=== PATIENT | male | born 1940 | race Caucasian/White ===

== ENCOUNTER → 2017-07-12 | Outpatient (CLI) | payer MEDICARE | END | disposition home or self-care (01) | LOC: CVU 08:50 | PROVIDERS: ATTEND Internal Medicine Cardiovascular Disease | DX: I65.23 Occlusion and stenosis of bilateral carotid arteries (principal); I10 Essential (primary) hypertension; Z87.891 Personal history of nicotine dependence | CPT/HCPCS: 93880 ==

== ENCOUNTER → 2017-12-01 | Outpatient (CLI) | payer MEDICARE | END | disposition home or self-care (01) | LOC: CVU 09:48 | PROVIDERS: ATTEND Internal Medicine Cardiovascular Disease | DX: I70.213 Atherosclerosis of native arteries of extremities with intermittent claudication, bilateral legs (principal); I87.2 Venous insufficiency (chronic) (peripheral); R60.0 Localized edema | CPT/HCPCS: 93922 ==

== ENCOUNTER → 2017-12-19 | Outpatient (CLI) | payer MEDICARE | END | disposition home or self-care (01) | LOC: CVU 08:53 | PROVIDERS: ATTEND Internal Medicine Cardiovascular Disease | DX: I51.7 Cardiomegaly (principal); I35.1 Nonrheumatic aortic (valve) insufficiency | CPT/HCPCS: 93306 ==

== ENCOUNTER → 2019-11-21 | Outpatient (CLI) | payer MEDICARE ==
[2019-11-21 11:35] LABS: ALANINE AMINOTRANSFERASE 32 U/L (12-78); ALBUMIN 3.9 g/dL (3.4-5.0); ANION GAP 3 mmol/L (5-15); CHLORIDE 108 mmol/L (98-107); CHOLESTEROL, TOTAL 193 mg/dL (140-239); CREATININE 0.76 mg/dL (0.7-1.3); TRIGLYCERIDES 116 mg/dL (50-200); VLDL CHOLESTEROL 23 mg/dL (0-25)
[2019-11-21 11:37] LABS: ALKALINE PHOSPHATASE 50 U/L (45-117); BILIRUBIN,TOTAL 0.7 mg/dL (0.2-1.0); CHOL/HDL RATIO 4.6; HDL CHOL % 22 % (26-37); HDL CHOLESTEROL (DIRECT) 42 mg/dL (40-60); LDL CHOLESTEROL,CALCULATED 128 mg/dL (54-169); TOTAL PROTEIN 7.1 g/dL (6.4-8.2)
== END | disposition home or self-care (01) ==
LOC: CVU 09:50
PROVIDERS: ATTEND Internal Medicine Cardiovascular Disease
DX: I08.0 Rheumatic disorders of both mitral and aortic valves (principal); I11.9 Hypertensive heart disease without heart failure; R00.1 Bradycardia, unspecified; R60.9 Edema, unspecified
CPT/HCPCS: 36415; 80053; 80061; 93306

== ENCOUNTER 2020-07-21 10:53 | Outpatient (CLI) | payer MEDICARE | END 2020-07-21 23:59 | disposition home or self-care (01) | LOC: CVU 10:53 | PROVIDERS: ATTEND Internal Medicine Cardiovascular Disease | DX: I08.3 Combined rheumatic disorders of mitral, aortic and tricuspid valves (principal); I11.9 Hypertensive heart disease without heart failure | CPT/HCPCS: C8929; Q9957 ==

== ENCOUNTER → 2020-08-15 | Outpatient (CLI) | payer MEDICARE ==
[~2020-08-15] MED LIST: VISIPAQUE 320 MG/ML, 150ML BOTTLE ONE
[2020-08-15 11:26] LABS: CREATININE 0.71 mg/dL (0.7-1.3)
== END | disposition home or self-care (01) ==
LOC: RAD 10:33
PROVIDERS: ATTEND Internal Medicine Cardiovascular Disease
DX: I65.23 Occlusion and stenosis of bilateral carotid arteries (principal); E78.2 Mixed hyperlipidemia; I35.8 Other nonrheumatic aortic valve disorders; I70.203 Unspecified atherosclerosis of native arteries of extremities, bilateral legs; K76.0 Fatty (change of) liver, not elsewhere classified; N28.1 Cyst of kidney, acquired; I70.0 Atherosclerosis of aorta; I10 Essential (primary) hypertension
CPT/HCPCS: 36415; 71275; 74174; 82565; 93880; Q9967

== ENCOUNTER 2020-08-25 10:26 | Day surgery (SDC) | payer MEDICARE ==
[~2020-08-25] VITALS: Ht 175.3 cm; Wt 137.7 kg
[2020-08-25] MEDS ORDERED: ASPI81TA45 PO (11:15)
[2020-08-25] MEDS ORDERED: LOSA1TAB25 PO (11:15)
[2020-08-25] MEDS ORDERED: GABA-827 PO (11:15)
[2020-08-25] MEDS ORDERED: TAMS-11 PO (11:15)
[2020-08-25] MEDS ORDERED: LEVO112T4 PO (11:15)
[2020-08-25] MEDS ORDERED: SPIR25TA5 PO (11:15)
[2020-08-25] MEDS ORDERED: MV-M1TAB34 PO (11:19)
[2020-08-25] MEDS ORDERED: RED600TA PO (11:19)
[2020-08-25] MEDS ORDERED: LYSI500T25 PO (11:19)
[2020-08-25] MEDS ORDERED: UBID100C41 PO (11:19)
[2020-08-25] MEDS ORDERED: ARGI500C2 PO (11:19)
[2020-08-25] MEDS ORDERED: Vitamin D PO (11:19)
[2020-08-25] MEDS ORDERED: AREDS 2 PO (11:19)
[2020-08-25 11:49] VITALS: BP 137/62
[2020-08-25 11:55] LABS: BASOPHILS % (AUTO) 1 % (0-1); EOSINOPHILS % (AUTO) 5 % (1-7); LYMPHOCYTES % (AUTO) 24 % (22-44); MEAN CORPUSCULAR HGB CONC 34.3 g/dL (33.2-36.2); MEAN PLATELET VOLUME 7.4 fL (7.4-10.4); MONOCYTES % (AUTO) 10 % (2-9); NEUTROPHILS % (AUTO) 61 % (42-75); PLATELET COUNT 287 x10^3/uL (130-400); RED BLOOD COUNT 4.66 x10^6/uL (4.38-5.82); RED CELL DISTRIBUTION WIDTH 13.5 % (9.4-14.8)
[2020-08-25 12:05] LABS: ANION GAP 5 mmol/L (5-15); CALCIUM 8.7 mg/dL (8.5-10.1); CHLORIDE 109 mmol/L (98-107); CREATININE 0.71 mg/dL (0.7-1.3)
[2020-08-25] MEDS ORDERED: FENTANYL PF 100 MCG/2ML ONE (13:36)
[2020-08-25] MEDS ORDERED: HEPARIN 1,000 UNITS/ML, 10ML ONE (13:36)
[2020-08-25] MEDS ORDERED: LIDOCAINE-MPF 1%, 5ML ONE (13:36)
[2020-08-25] MEDS ORDERED: VERAPAMIL 2.5 MG/ML, 2ML ONE (13:36)
[2020-08-25] MEDS ORDERED: MIDAZOLAM 1 MG/ML, 2ML ONE (13:36)
[2020-08-25] MEDS ORDERED: LIDOCAINE 1%, 20ML ONE (13:59)
== END 2020-08-25 15:54 | disposition home or self-care (01) ==
LOC: CACL 10:26
PROVIDERS: ATTEND Internal Medicine Cardiovascular Disease
DX: Z01.810 Encounter for preprocedural cardiovascular examination (principal); I35.0 Nonrheumatic aortic (valve) stenosis; I25.10 Atherosclerotic heart disease of native coronary artery without angina pectoris; I10 Essential (primary) hypertension; I65.29 Occlusion and stenosis of unspecified carotid artery; E78.2 Mixed hyperlipidemia; Z79.82 Long term (current) use of aspirin; Z79.890 Hormone replacement therapy; Z79.899 Other long term (current) drug therapy; Z96.652 Presence of left artificial knee joint
CPT/HCPCS: 36415; 80048; 85025; 93454; 99156; C1769; C1894; J1644; J2250; J3010; Q9967

== ENCOUNTER 2020-09-09 08:09 | Inpatient (IN) | payer MEDICARE ==
[~2020-09-09] VITALS: Ht 175.3 cm; Wt 139.8 kg
[~2020-09-09 08:09] MED LIST changes: +AREDS 2 PO; +ARGI500C2 PO; +ASPI81TA45 PO; +GABA-827 PO; +LEVO112T4 PO; +LOSA1TAB25 PO; +LYSI500T25 PO; +MV-M1TAB34 PO; +RED600TA PO; +SPIR25TA5 PO; +TAMS-11 PO; +UBID100C41 PO; -VISIPAQUE 320 MG/ML, 150ML BOTTLE ONE; +Vitamin D PO
[2020-09-09] MEDS ORDERED: PLEASE ENTER HEIGHT AND WEIGHT MC SCH (09:00)
[2020-09-09] MEDS ORDERED: ONDANSETRON 2MG/ML, 2ML IV PRN (09:00)
[2020-09-09] MEDS ORDERED: SODIUM CHLORIDE 0.9% 1,000 ML IV ONE (09:00)
[2020-09-09 09:05] VITALS: BP 145/66
[2020-09-09] MEDS ORDERED: LOSA1TAB22 PO (09:12)
[2020-09-09] MEDS ORDERED: LEVO125T5 PO (09:15)
[2020-09-09] MEDS ORDERED: ARGI1000 PO (09:17)
[2020-09-09 09:31] LABS: BASOPHILS % (AUTO) 1 % (0-1); EOSINOPHILS % (AUTO) 4 % (1-7); LYMPHOCYTES % (AUTO) 20 % (22-44); MEAN CORPUSCULAR HGB CONC 34.4 g/dL (33.2-36.2); MEAN PLATELET VOLUME 7.5 fL (7.4-10.4); MONOCYTES % (AUTO) 10 % (2-9); NEUTROPHILS % (AUTO) 65 % (42-75); PLATELET COUNT 286 x10^3/uL (130-400); RED BLOOD COUNT 4.72 x10^6/uL (4.38-5.82); RED CELL DISTRIBUTION WIDTH 13.5 % (9.4-14.8)
[2020-09-09 09:39] LABS: INTERNATIONAL NORMALIZED RATIO 0.98 (0.93-1.1); PROTHROMBIN TIME 10.5 Seconds (9.6-11.5)
[2020-09-09 09:45] LABS: ALANINE AMINOTRANSFERASE 31 U/L (12-78); ALBUMIN 3.5 g/dL (3.4-5.0); ANION GAP 5 mmol/L (5-15); CALCIUM 8.6 mg/dL (8.5-10.1); CHLORIDE 108 mmol/L (98-107); CREATININE 0.68 mg/dL (0.7-1.3)
[2020-09-09 09:47] LABS: ALKALINE PHOSPHATASE 46 U/L (45-117); BILIRUBIN,TOTAL 0.8 mg/dL (0.2-1.0); TOTAL PROTEIN 6.8 g/dL (6.4-8.2)
[2020-09-09] MEDS ORDERED: PROTAMINE SULFATE 10 MG/ML, 5ML ONE (09:59)
[2020-09-09] MEDS ORDERED: FENTANYL PF 250 MCG/5ML ONE (10:04)
[2020-09-09] MEDS ORDERED: PROPOFOL 10 MG/ML, 20ML ONE (10:05)
[2020-09-09] MEDS ORDERED: CEFAZOLIN 1,000 MG ONE (10:05)
[2020-09-09] MEDS ORDERED: DEXAMETHASONE 4 MG/ML, 1ML ONE (10:05)
[2020-09-09] MEDS ORDERED: ROCURONIUM 10MG/ML,5ML ONE (10:05)
[2020-09-09] MEDS ORDERED: SUCCINYLCHOLINE 20 MG/ML, 10ML ONE (10:09)
[2020-09-09] MEDS ORDERED: GLYCOPYRROLATE 0.2MG/1ML, 5ML ONE (10:09)
[2020-09-09] MEDS ORDERED: PHENYLEPHRINE 10 MG/ML ONE (10:09)
[2020-09-09] MEDS ORDERED: HEPARIN 1,000 UNITS/ML, 10ML ONE ×3 (10:33)
[2020-09-09] MEDS ORDERED: ONDANSETRON 2MG/ML, 2ML ONE (11:02)
[2020-09-09] MEDS ORDERED: LABETALOL 20 MG/4 ML IVPush PRN (11:30)
[2020-09-09] MEDS ORDERED: ACETAMINOPHEN 325 MG TABLET PO PRN (11:30)
[2020-09-09] MEDS ORDERED: HYDROcodone/APAP 5/325 TABLET PO PRN (11:30)
[2020-09-09] MEDS ORDERED: hydrALAzine 20 MG/ML, 1ML IVPush PRN (11:30)
[2020-09-09] MEDS ORDERED: hydrALAzine 20 MG/ML, 1ML ONE (11:51)
[2020-09-09] MEDS: ASPIRIN 81 MG TABLET EC PO SCH (12:00)
[2020-09-09] MEDS ORDERED: ASPIRIN 81 MG TABLET CHEW ONE (12:02)
[2020-09-09 13:10] VITALS: BP 109/60
[2020-09-09 15:15] VITALS: BP 119/63
[2020-09-09] MEDS: GABAPENTIN 400 MG CAPSULE PO SCH ×2 (17:04→20:57)
[2020-09-09 19:37] VITALS: BP 122/67
[2020-09-09] MEDS ORDERED: TAMSULOSIN 0.4 MG CAP.ER.24H PO SCH (21:00)
[2020-09-10 00:57] VITALS: BP 134/79
[2020-09-10 05:02] LABS: BASOPHILS % (AUTO) 0 % (0-1); EOSINOPHILS % (AUTO) 0 % (1-7); LYMPHOCYTES % (AUTO) 7 % (22-44); MEAN CORPUSCULAR HEMOGLOBIN 30.8 pg (27.5-34.5); MEAN CORPUSCULAR HGB CONC 33.7 g/dL (33.2-36.2); MEAN PLATELET VOLUME 7.3 fL (7.4-10.4); MONOCYTES % (AUTO) 7 % (2-9); NEUTROPHILS % (AUTO) 86 % (42-75); PLATELET COUNT 261 x10^3/uL (130-400); RED BLOOD COUNT 4.43 x10^6/uL (4.38-5.82); RED CELL DISTRIBUTION WIDTH 13.3 % (9.4-14.8)
[2020-09-10 05:15] LABS: ANION GAP 8 mmol/L (5-15); CALCIUM 8.2 mg/dL (8.5-10.1); CHLORIDE 104 mmol/L (98-107)
[2020-09-10 05:16] LABS: CREATININE 0.59 mg/dL (0.7-1.3)
[2020-09-10] MEDS ORDERED: LEVOTHYROXINE 125 MCG TABLET PO SCH (06:00)
[2020-09-10 07:22] VITALS: BP 149/72
[2020-09-10] MEDS ORDERED: HYDROCHLOROTHIAZIDE 25 MG TABLET PO SCH (09:00)
[2020-09-10] MEDS ORDERED: LOSARTAN 100 MG TAB PO SCH (09:00)
[2020-09-10] MEDS ORDERED: SPIRONOLACTONE 25 MG TABLET PO SCH (09:00)
[2020-09-10] MEDS: ASPIRIN 81 MG TABLET EC PO SCH (09:32)
[2020-09-10] MEDS: GABAPENTIN 400 MG CAPSULE PO SCH (09:32)
== END 2020-09-10 13:45 | disposition home or self-care (01) | DRG 266 ==
LOC: ORIP 08:09 → 5SO 12:28 → DCLOUNGE 09-10 13:45
PROVIDERS: ADMIT Internal Medicine Cardiovascular Disease; ATTEND Internal Medicine Cardiovascular Disease
PROC: B3101ZZ Fluoroscopy of Thoracic Aorta using Low Osmolar Contrast (ICD-10-PCS; 2020-09-09)
PROC: B24BZZ4 Ultrasonography of Heart with Aorta, Transesophageal (ICD-10-PCS; 2020-09-09)
PROC: 02RF38Z Replacement of Aortic Valve with Zooplastic Tissue, Percutaneous Approach (ICD-10-PCS; principal; 2020-09-09 10:30)
DX: I35.0 Nonrheumatic aortic (valve) stenosis (principal); Z00.6 Encounter for examination for normal comparison and control in clinical research program; I50.33 Acute on chronic diastolic (congestive) heart failure; Z68.42 Body mass index [BMI] 45.0-49.9, adult; D72.829 Elevated white blood cell count, unspecified; E66.9 Obesity, unspecified; E78.5 Hyperlipidemia, unspecified; G47.33 Obstructive sleep apnea (adult) (pediatric); I11.0 Hypertensive heart disease with heart failure; I27.20 Pulmonary hypertension, unspecified; I44.1 Atrioventricular block, second degree; N40.0 Benign prostatic hyperplasia without lower urinary tract symptoms; Z96.652 Presence of left artificial knee joint; Z20.822 Contact with and (suspected) exposure to COVID-19
CPT/HCPCS: 33361; 36415; 76937; 80048; 80053; 85025; 85610; 86850; 86900; 86923; 87635; 93005; 93306; 93312; 93321; 93325; 93355; C1760; C1769; C1894; G0378; J0690; J1100; J1644; J2405; J2704; J2720; J3010; J0330; J0360; J2370; J7030; Q9967

== ENCOUNTER → 2020-10-20 | Outpatient (CLI) | payer MEDICARE ==
[~2020-10-20] MED LIST changes: +ARGI1000 PO; +LEVO125T5 PO; +LOSA1TAB22 PO
== END | disposition home or self-care (01) ==
LOC: CVU 09:53
PROVIDERS: ATTEND Internal Medicine Cardiovascular Disease
DX: Z01.810 Encounter for preprocedural cardiovascular examination (principal); I08.1 Rheumatic disorders of both mitral and tricuspid valves; I65.29 Occlusion and stenosis of unspecified carotid artery; I11.9 Hypertensive heart disease without heart failure; Z95.2 Presence of prosthetic heart valve
CPT/HCPCS: 93306

== ENCOUNTER 2020-11-07 08:47 | Observation (INO) | payer MEDICARE ==
[~2020-11-07] VITALS: Ht 175.3 cm; Wt 136.0 kg
[2020-11-07] MEDS: SODIUM CHLORIDE 0.9% 1,000 ML IV SCH ×2 (09:30→16:29)
[2020-11-07] MEDS ORDERED: ROSU5TAB PO (09:44)
[2020-11-07] MEDS ORDERED: UBID30CA9 PO (09:44)
[2020-11-07 09:47] VITALS: BP 147/65
[2020-11-07 10:49] LABS: BASOPHILS % (AUTO) 1 % (0-1); EOSINOPHILS % (AUTO) 3 % (1-7); LYMPHOCYTES % (AUTO) 22 % (22-44); MEAN CORPUSCULAR HEMOGLOBIN 30.2 pg (27.5-34.5); MEAN PLATELET VOLUME 7.8 fL (7.4-10.4); MONOCYTES % (AUTO) 11 % (2-9); NEUTROPHILS % (AUTO) 63 % (42-75); PLATELET COUNT 231 x10^3/uL (130-400); RED CELL DISTRIBUTION WIDTH 13.8 % (9.4-14.8)
[2020-11-07 10:55] LABS: INTERNATIONAL NORMALIZED RATIO 0.95 (0.93-1.1); PROTHROMBIN TIME 10.2 Seconds (9.6-11.5)
[2020-11-07 10:57] LABS: ANION GAP 7 mmol/L (5-15); CHLORIDE 106 mmol/L (98-107); CREATININE 0.71 mg/dL (0.7-1.3)
[2020-11-07] MEDS ORDERED: CEFAZOLIN PMX 1GM/50ML 50 ML IVPB ONE (11:00)
[2020-11-07] MEDS ORDERED: CEFAZOLIN 1,000 MG ONE (11:54)
[2020-11-07] MEDS ORDERED: FENTANYL PF 100 MCG/2ML ONE (11:54)
[2020-11-07] MEDS ORDERED: CEFAZOLIN PMX 1GM/50ML 50 ML ONE (11:54)
[2020-11-07] MEDS ORDERED: MIDAZOLAM 1 MG/ML, 5ML ONE (11:54)
[2020-11-07] MEDS ORDERED: LIDOCAINE 2%, 20ML ONE (11:54)
[2020-11-07] MEDS ORDERED: MIDAZOLAM 1 MG/ML, 2ML ONE (12:25)
[2020-11-07] MEDS ORDERED: HOLD MEDICATION MC PRN (13:00)
[2020-11-07] MEDS ORDERED: HYDROcodone/APAP 5/325 TABLET PO PRN (13:00)
[2020-11-07 15:15] VITALS: BP 129/82
[2020-11-07] MEDS: GABAPENTIN 400 MG CAPSULE PO SCH ×2 (16:44→20:35)
[2020-11-07] MEDS ORDERED: ATORVASTATIN 20 MG TABLET PO SCH (21:00)
[2020-11-07] MEDS ORDERED: TAMSULOSIN 0.4 MG CAP.ER.24H PO SCH (21:00)
[2020-11-07] MEDS: SODIUM CHLORIDE FLUSH 10ML SYR IVF SCH (21:07)
[2020-11-07] MEDS: CEFAZOLIN PMX 1GM/50ML 50 ML IVPB SCH (21:07)
[2020-11-07 21:21] VITALS: BP 132/77
[2020-11-08 03:36] VITALS: BP 126/79
[2020-11-08] MEDS: CEFAZOLIN PMX 1GM/50ML 50 ML IVPB SCH ×2 (03:52→11:19)
[2020-11-08] MEDS ORDERED: LEVOTHYROXINE 125 MCG TABLET PO SCH (06:00)
[2020-11-08 07:16] VITALS: BP 143/79
[2020-11-08] MEDS ORDERED: ACET325T26 PO (08:03)
[2020-11-08] MEDS ORDERED: CHOLECALCIFEROL 1,000 UNIT TABLET PO SCH (09:00)
[2020-11-08] MEDS ORDERED: SPIRONOLACTONE 25 MG TABLET PO SCH (09:00)
[2020-11-08] MEDS ORDERED: TEMPLATE NON-FORMULARY MED. (Losartan/Hydrochlorothiazide** (Losartan-Hctz 100-25 Mg Tab PO SCH (09:00)
[2020-11-08] MEDS ORDERED: LOSARTAN 50MG TABLET PO SCH (09:00)
[2020-11-08] MEDS ORDERED: ASPIRIN 81 MG TABLET EC PO SCH (09:00)
[2020-11-08] MEDS ORDERED: AREDS PO SCH (09:00)
[2020-11-08] MEDS ORDERED: HYDROCHLOROTHIAZIDE 25 MG TABLET PO SCH (09:00)
[2020-11-08] MEDS ORDERED: TEMPLATE NON-FORMULARY MED. (Ubidecarenone (Coq-10) 1 TAB) PO SCH (09:00)
[2020-11-08] MEDS: SODIUM CHLORIDE FLUSH 10ML SYR IVF SCH (09:24)
[2020-11-08] MEDS: GABAPENTIN 400 MG CAPSULE PO SCH (09:25)
== END 2020-11-08 12:04 | disposition home or self-care (01) ==
LOC: CACL 08:47 → 5SO 12:55 → CACL 15:58
PROVIDERS: ADMIT Internal Medicine Cardiovascular Disease; ATTEND Internal Medicine Cardiovascular Disease
DX: I44.30 Unspecified atrioventricular block (principal); I44.7 Left bundle-branch block, unspecified; I49.5 Sick sinus syndrome; I65.29 Occlusion and stenosis of unspecified carotid artery; I11.0 Hypertensive heart disease with heart failure; I50.33 Acute on chronic diastolic (congestive) heart failure; I45.9 Conduction disorder, unspecified; E78.2 Mixed hyperlipidemia; E66.9 Obesity, unspecified; G47.30 Sleep apnea, unspecified; Z95.2 Presence of prosthetic heart valve; Z87.891 Personal history of nicotine dependence; Z79.899 Other long term (current) drug therapy
CPT/HCPCS: 33208; 36415; 71045; 71046; 80048; 85025; 85610; 93005; 96365; 96366; 99156; 99157; C1779; C1785; C1892; G0378; J0690; J2250; J3010; J3490

== ENCOUNTER → 2020-12-12 | Outpatient (CLI) | payer MEDICARE ==
[~2020-12-12] MED LIST changes: +ACET325T26 PO; +ROSU5TAB PO; +UBID30CA9 PO
[2020-12-12 12:20] LABS: ALANINE AMINOTRANSFERASE 43 U/L (12-78); ALBUMIN 3.9 g/dL (3.4-5.0); ANION GAP 4 mmol/L (5-15); CALCIUM 8.6 mg/dL (8.5-10.1); CHLORIDE 106 mmol/L (98-107); CHOLESTEROL, TOTAL 115 mg/dL (140-239); CREATININE 0.68 mg/dL (0.7-1.3)
[2020-12-12 12:23] LABS: ALKALINE PHOSPHATASE 58 U/L (45-117); BILIRUBIN,TOTAL 0.9 mg/dL (0.2-1.0); HDL CHOL % 33 % (26-37); HDL CHOLESTEROL (DIRECT) 38 mg/dL (40-60); LDL CHOLESTEROL,CALCULATED 54 mg/dL (54-169); LDL/HDL RATIO 1.4 (0.5-3.0); TOTAL PROTEIN 7.2 g/dL (6.4-8.2); TRIGLYCERIDES 113 mg/dL (50-200); VLDL CHOLESTEROL 23 mg/dL (0-25)
== END | disposition home or self-care (01) ==
LOC: LAB 11:42
PROVIDERS: ATTEND Internal Medicine Cardiovascular Disease
DX: I11.0 Hypertensive heart disease with heart failure (principal); I50.33 Acute on chronic diastolic (congestive) heart failure; E78.2 Mixed hyperlipidemia; I35.8 Other nonrheumatic aortic valve disorders; I65.29 Occlusion and stenosis of unspecified carotid artery; R00.1 Bradycardia, unspecified; R60.9 Edema, unspecified
CPT/HCPCS: 36415; 80053; 80061